=== PATIENT | male | born 1940 | race Caucasian/White ===

== ENCOUNTER 2016-06-19 13:51 | Emergency (ER) | payer MEDICARE, OTHER ==
[~2016-06-19] VITALS: Ht 167.6 cm; Wt 69.0 kg
[2016-06-19] MEDS ORDERED: ALLO300T PO (14:26)
[2016-06-19] MEDS ORDERED: DICY10CA3 PO (14:26)
[2016-06-19] MEDS ORDERED: CYAN100028 PO (14:26)
[2016-06-19] MEDS ORDERED: DILT240C77 PO (14:26)
[2016-06-19] MEDS ORDERED: TRAM50TA2 PO (14:26)
[2016-06-19] MEDS ORDERED: OXYB10TA6 PO (14:26)
[2016-06-19] MEDS ORDERED: APIX5TAB PO (14:26)
[2016-06-19] MEDS ORDERED: METH4TAB6 PO (14:26)
[2016-06-19] MEDS ORDERED: DIGO125T PO (14:26)
[2016-06-19] MEDS ORDERED: HYDR12.53 PO (14:26)
[2016-06-19] MEDS ORDERED: PRIM50TA PO (14:26)
[2016-06-19] MEDS ORDERED: TURM500C7 PO (14:26)
[2016-06-19] MEDS ORDERED: VALS320T2 PO (14:26)
[2016-06-19] MEDS ORDERED: ESOM40CA PO (14:26)
[2016-06-19] MEDS ORDERED: SODIUM CHLORIDE FLUSH 10ML SYR IVF ONE (14:30)
[2016-06-19] MEDS ORDERED: SODIUM CHLORIDE 0.9% 1,000ML IVBOLUS ONE (14:30)
[2016-06-19 15:04] LABS: BLOOD UREA NITROGEN 12 mg/dL (7-18)
[2016-06-19 15:09] LABS: ASPARTATE AMINO TRANSFERASE 51 U/L (15-37)
[2016-06-19] MEDS ORDERED: OXYcodone/APAP 5/325MG TABLET PO ONE (15:30)
[2016-06-19] MEDS ORDERED: OMNIPAQUE 350 MG/ML, 100ML BOTTLE ONE (15:31)
[2016-06-19] MEDS ORDERED: OXYcodone/APAP 5/325MG TABLET ONE (15:35)
[2016-06-19 16:19] VITALS: BP 122/77
== END 2016-06-19 16:21 | disposition home or self-care (01) ==
LOC: ED 16:15
DX: S22.32XA Fracture of one rib, left side, initial encounter for closed fracture (principal); S60.011A Contusion of right thumb without damage to nail, initial encounter; W18.39XA Other fall on same level, initial encounter; Y93.89 Activity, other specified; Y92.009 Unspecified place in unspecified non-institutional (private) residence as the place of occurrence of the external cause; Y99.9 Unspecified external cause status
CPT/HCPCS: 36415; 71260; 74177; 80053; 85025; 96360; 99285; J7030; Q9967

== ENCOUNTER → 2016-06-19 | Outpatient (CLI) | payer MEDICARE, OTHER ==
[~2016-06-19] MED LIST: ALLO300T PO; APIX5TAB PO; CYAN100028 PO; DICY10CA3 PO; DIGO125T PO; DILT240C77 PO; ESOM40CA PO; HYDR12.53 PO; METH4TAB6 PO; OXYB10TA6 PO; PRIM50TA PO; TRAM50TA2 PO; TURM500C7 PO; VALS320T2 PO
[2016-06-19 11:52] LABS: BLOOD UREA NITROGEN 10 mg/dL (7-18)
[2016-06-19 12:16] LABS: ASPARTATE AMINO TRANSFERASE 33 U/L (15-37)
[2016-06-20 11:06] LABS: CREATININE URINE 148.5 mg/dL (Not Estab.)
== END | disposition home or self-care (01) ==
LOC: CFH 09:36
PROVIDERS: ATTEND Internal Medicine
DX: G31.84 Mild cognitive impairment of uncertain or unknown etiology (principal); E11.9 Type 2 diabetes mellitus without complications; G25.0 Essential tremor; G47.00 Insomnia, unspecified; I10 Essential (primary) hypertension
CPT/HCPCS: 36415; 80053; 80061; 82043; 82570; 82607; 82746; 83036; 84153; 84443; 85025; G0103

== ENCOUNTER → 2016-09-21 | Outpatient (CLI) | payer MEDICARE, OTHER | END | disposition home or self-care (01) | LOC: CFH 09:33 | PROVIDERS: ATTEND Licensed Practical Nurse | DX: Z87.891 Personal history of nicotine dependence (principal); Z13.6 Encounter for screening for cardiovascular disorders | CPT/HCPCS: 93978 ==

== ENCOUNTER → 2017-12-13 | Outpatient (CLI) | payer MEDICARE, OTHER ==
[2017-12-13 15:32] LABS: BASOPHILS # (AUTO) 0.04 x10^3/uL (0-0.1); BASOPHILS % (AUTO) 1 % (0-1); EOSINOPHILS # (AUTO) 0.07 x10^3/uL (0-0.4); EOSINOPHILS % (AUTO) 1 % (1-7); LYMPHOCYTES # (AUTO) 1.35 x10^3/uL (1-3.4); LYMPHOCYTES % (AUTO) 26 % (22-44); MD NO; MEAN CORPUSCULAR HEMOGLOBIN 36.9 pg (27.5-34.5); MEAN CORPUSCULAR VOLUME 108.6 fL (81-97); MEAN PLATELET VOLUME 8.8 fL (7.4-10.4); MONOCYTES # (AUTO) 0.45 x10^3/uL (0.2-0.8); MONOCYTES % (AUTO) 9 % (2-9); NEUTROPHILS # (AUTO) 3.26 x10^3/uL (1.8-6.8); NEUTROPHILS % (AUTO) 63 % (42-75); PLATELET COUNT 152 x10^3/uL (130-400)
[2017-12-13 15:40] LABS: ALANINE AMINOTRANSFERASE 81 U/L (12-78); ALBUMIN 3.6 g/dL (3.4-5.0); ANION GAP 10 mmol/L (5-15); CALCIUM 8.5 mg/dL (8.5-10.1); CHLORIDE 100 mmol/L (98-107); CHOLESTEROL, TOTAL 137 mg/dL (140-239); CREATININE 0.83 mg/dL (0.7-1.3)
[2017-12-13 15:46] LABS: ALKALINE PHOSPHATASE 77 U/L (45-117); BILIRUBIN,TOTAL 1.2 mg/dL (0.2-1.0); CHOL/HDL RATIO 2.4; HDL CHOL % 42 % (26-37); HDL CHOLESTEROL (DIRECT) 58 mg/dL (40-60); LDL CHOLESTEROL,CALCULATED 44 mg/dL (54-169); LDL/HDL RATIO 0.8 (0.5-3.0); TOTAL PROTEIN 7.4 g/dL (6.4-8.2); TRIGLYCERIDES 173 mg/dL (50-200); VLDL CHOLESTEROL 35 mg/dL (0-25)
[2017-12-13 16:11] LABS: HEMOGLOBIN A1C 6.3 % (4.2-6.3)
== END | disposition home or self-care (01) ==
LOC: CFH 13:26
PROVIDERS: ATTEND Internal Medicine Rheumatology
DX: Z12.5 Encounter for screening for malignant neoplasm of prostate (principal); G25.0 Essential tremor; G31.84 Mild cognitive impairment of uncertain or unknown etiology; G47.00 Insomnia, unspecified; G47.30 Sleep apnea, unspecified; F10.20 Alcohol dependence, uncomplicated; E11.9 Type 2 diabetes mellitus without complications
CPT/HCPCS: 36415; 80053; 80061; 83036; 84550; 85025; G0103; 84153

== ENCOUNTER → 2018-03-21 | Outpatient (CLI) | payer MEDICARE, OTHER ==
[~2018-03-21] MED LIST changes: +HYDR12.517 PO; -HYDR12.53 PO
== END | disposition home or self-care (01) ==
LOC: RAD 13:36
PROVIDERS: ATTEND Internal Medicine
DX: R13.10 Dysphagia, unspecified (principal)
CPT/HCPCS: 74220

== ENCOUNTER → 2018-04-09 | Outpatient (CLI) | payer MEDICARE, OTHER | END | disposition home or self-care (01) | LOC: CFH 10:40 | PROVIDERS: ATTEND Internal Medicine Gastroenterology | DX: R74.8 Abnormal levels of other serum enzymes (principal); R53.81 Other malaise; R63.0 Anorexia; R68.81 Early satiety | CPT/HCPCS: 76700 ==

== ENCOUNTER → 2018-05-20 | Outpatient (CLI) | payer MEDICARE, OTHER ==
[2018-05-20 15:22] LABS: ALANINE AMINOTRANSFERASE 43 U/L (12-78); ALBUMIN 3.9 g/dL (3.4-5.0); ANION GAP 4 mmol/L (5-15); CALCIUM 8.9 mg/dL (8.5-10.1); CHLORIDE 105 mmol/L (98-107)
[2018-05-20 15:25] LABS: ALKALINE PHOSPHATASE 68 U/L (45-117); BILIRUBIN,TOTAL 1.2 mg/dL (0.2-1.0); CREATININE 0.93 mg/dL (0.7-1.3); TOTAL PROTEIN 7.3 g/dL (6.4-8.2)
== END | disposition home or self-care (01) ==
LOC: CFH 10:36
PROVIDERS: ATTEND Internal Medicine Gastroenterology
DX: R53.81 Other malaise (principal); R63.0 Anorexia; R74.8 Abnormal levels of other serum enzymes; R68.81 Early satiety
CPT/HCPCS: 36415; 80053

== ENCOUNTER 2018-07-24 12:07 | Outpatient (CLI) | payer MEDICARE, OTHER ==
[~2018-07-24 12:07] MED LIST changes: +REGADENOSON 0.4 MG/5 ML SYRINGE ONE
== END 2018-07-24 23:59 | disposition home or self-care (01) ==
LOC: CFH 12:07
PROVIDERS: ATTEND Internal Medicine Cardiovascular Disease
DX: Z01.818 Encounter for other preprocedural examination (principal); I48.91 Unspecified atrial fibrillation
CPT/HCPCS: 78452; 93017; A9502; J2785

== ENCOUNTER → 2018-08-22 | Outpatient (CLI) | payer MEDICARE, OTHER ==
[~2018-08-22] MED LIST changes: +ALBU18HF INH; +CETI10TA24 PO; +FLUO30CR2 TP; +FLUT15.88 NS; +GABA300C10 PO; +LOSA100T14 PO; +MIRA50TA PO; +PANT40TA5 PO; -REGADENOSON 0.4 MG/5 ML SYRINGE ONE; +SOLI10TA2 PO
== END | disposition home or self-care (01) ==
LOC: CFH 13:28
PROVIDERS: ATTEND Internal Medicine Rheumatology
DX: M1A.09X0 Idiopathic chronic gout, multiple sites, without tophus (tophi) (principal); I48.2 Chronic atrial fibrillation; Z79.01 Long term (current) use of anticoagulants
CPT/HCPCS: 36415; 84550

== ENCOUNTER 2018-08-27 10:04 | Outpatient (CLI) | payer MEDICARE, OTHER ==
[~2018-08-27 10:04] MED LIST changes: -ALBU18HF INH; -CETI10TA24 PO; -FLUO30CR2 TP; -FLUT15.88 NS; -GABA300C10 PO; -LOSA100T14 PO; -MIRA50TA PO; -PANT40TA5 PO; -SOLI10TA2 PO
[2018-08-27] MEDS ORDERED: CETI10TA24 PO (11:04)
[2018-08-27] MEDS ORDERED: SOLI10TA2 PO (11:04)
[2018-08-27] MEDS ORDERED: FLUT15.845 NS (11:04)
[2018-08-27] MEDS ORDERED: ALBU18HF INH (11:04)
[2018-08-27] MEDS ORDERED: GABA300C10 PO (11:04)
[2018-08-27] MEDS ORDERED: PANT40TA5 PO (11:04)
[2018-08-27] MEDS ORDERED: MIRA50TA PO (11:04)
[2018-08-27] MEDS ORDERED: FLUO30CR2 TP (11:04)
[2018-08-27] MEDS ORDERED: LOSA100T14 PO (11:04)
[2018-08-27 11:39] LABS: INTERNATIONAL NORMALIZED RATIO 1.12 (0.93-1.1); PROTHROMBIN TIME 11.7 Seconds (9.6-11.5)
[2018-08-27 11:52] LABS: BASOPHILS # (AUTO) 0.05 x10^3/uL (0-0.1); BASOPHILS % (AUTO) 1 % (0-1); EOSINOPHILS # (AUTO) 0.11 x10^3/uL (0-0.4); EOSINOPHILS % (AUTO) 3 % (1-7); LYMPHOCYTES # (AUTO) 1.32 x10^3/uL (1-3.4); LYMPHOCYTES % (AUTO) 32 % (22-44); MD NO; MEAN CORPUSCULAR HEMOGLOBIN 35.3 pg (27.5-34.5); MEAN CORPUSCULAR HGB CONC 33.7 g/dL (33.2-36.2); MEAN CORPUSCULAR VOLUME 104.6 fL (81-97); MEAN PLATELET VOLUME 8.2 fL (7.4-10.4); MONOCYTES % (AUTO) 12 % (2-9); NEUTROPHILS # (AUTO) 2.19 x10^3/uL (1.8-6.8); NEUTROPHILS % (AUTO) 53 % (42-75); PLATELET COUNT 127 x10^3/uL (130-400); RED BLOOD COUNT 4.63 x10^6/uL (4.38-5.82); RED CELL DISTRIBUTION WIDTH 13.6 % (9.4-14.8)
[2018-08-27 12:24] LABS: CHLORIDE 105 mmol/L (98-107)
[2018-08-27 12:30] LABS: ALANINE AMINOTRANSFERASE 55 U/L (12-78); ALBUMIN 4.1 g/dL (3.4-5.0); ALKALINE PHOSPHATASE 80 U/L (45-117); ANION GAP 3 mmol/L (5-15); BILIRUBIN,TOTAL 1.1 mg/dL (0.2-1.0); CALCIUM 9.1 mg/dL (8.5-10.1); CREATININE 0.94 mg/dL (0.7-1.3); TOTAL PROTEIN 7.9 g/dL (6.4-8.2)
== END 2018-08-27 23:59 | disposition home or self-care (01) ==
LOC: STAR 10:04
PROVIDERS: ATTEND Orthopaedic Surgery
DX: I48.91 Unspecified atrial fibrillation (principal); I49.3 Ventricular premature depolarization; M16.11 Unilateral primary osteoarthritis, right hip; Z79.899 Other long term (current) drug therapy
CPT/HCPCS: 36415; 80053; 83036; 85025; 85610; 85730; 87081; 87806; 93005; G0475

== ENCOUNTER 2018-09-01 07:27 | Inpatient (IN) | payer MEDICARE, OTHER ==
[~2018-09-01] VITALS: Ht 167.6 cm; Wt 74.3 kg
[~2018-09-01 07:27] MED LIST changes: +ALBU18HF INH; +CETI10TA24 PO; +EPINEPHRINE 1 MG/ML, 1ML ONE; +FLUO30CR2 TP; +FLUT15.845 NS; +GABA300C10 PO; +KETOROLAC 60 MG/2 ML ONE; +LOSA100T14 PO; +MIRA50TA PO; +PANT40TA5 PO; +ROPIvacaine/PF 0.2%, 20 ML ONE; +SODIUM CHLORIDE 0.9% 50 ML ONE; +SOLI10TA2 PO; +TRANEXAMIC ACID 100 MG/ML, 10ML ONE
[2018-09-01] MEDS ORDERED: LACTATED RINGERS 1,000 ML IV SCH (07:49)
[2018-09-01] MEDS ORDERED: ACETAMINOPHEN 500 MG TABLET PO ONE (08:00)
[2018-09-01] MEDS ORDERED: GABAPENTIN 300 MG CAPSULE PO ONE (08:00)
[2018-09-01 08:01] VITALS: BP 149/99
[2018-09-01] MEDS ORDERED: ONDANSETRON 4 MG TABLET PO PRN (09:00)
[2018-09-01] MEDS ORDERED: OXYcodone IR 5MG TABLET PO PRN (09:00)
[2018-09-01] MEDS ORDERED: POLYETHYLENE GLYCOL 17 GM PACKET PO PRN (09:00)
[2018-09-01] MEDS ORDERED: DIPHENHYDRAMINE 25 MG CAPSULE PO PRN (09:00)
[2018-09-01] MEDS ORDERED: ONDANSETRON 2MG/ML, 2ML IV PRN ×2 (09:00→11:30)
[2018-09-01] MEDS ORDERED: ACETAMINOPHEN 650 MG/20.3 ML UDC PO PRN (09:00)
[2018-09-01] MEDS: DOCUSATE 100 MG CAPSULE PO SCH ×2 (09:00→20:26)
[2018-09-01] MEDS ORDERED: ALUMINUM/MAG/SIMETHICONE 30 ML UDC PO PRN (09:00)
[2018-09-01] MEDS ORDERED: HYDROmorphone 2 MG/ML, 1ML IVPush PRN ×2 (09:00→11:30)
[2018-09-01] MEDS ORDERED: PSYLLIUM PACKET PO PRN (09:00)
[2018-09-01] MEDS ORDERED: SENNA/DOCUSATE TABLET PO PRN (09:00)
[2018-09-01] MEDS ORDERED: DIPHENHYDRAMINE 50 MG/ML, 1ML IVPush PRN (09:00)
[2018-09-01] MEDS ORDERED: TRANEXAMIC ACID 1,000 MG in SODIUM CHLORIDE 0.9% 100 ML IVPB ONE (09:00)
[2018-09-01] MEDS ORDERED: MAGNESIUM HYDROXIDE 8%, 30ML UDC PO PRN (09:00)
[2018-09-01] MEDS ORDERED: FENTANYL PF 250 MCG/5ML ONE (09:56)
[2018-09-01] MEDS ORDERED: GLYCOPYRROLATE 0.2MG/1ML, 5ML ONE (10:22)
[2018-09-01] MEDS ORDERED: PHENYLEPHRINE 10 MG/ML ONE (10:22)
[2018-09-01] MEDS ORDERED: ROCURONIUM 10MG/ML,5ML ONE (10:22)
[2018-09-01] MEDS ORDERED: ALBUTEROL/IPRATROPIUM 2.5MG/0.5MG, 3 ML NPPB PRN (11:30)
[2018-09-01] MEDS ORDERED: hydrALAzine 20 MG/ML, 1ML IV PRN (11:30)
[2018-09-01] MEDS ORDERED: MIDAZOLAM 1 MG/ML, 2ML IV PRN (11:30)
[2018-09-01] MEDS ORDERED: OXYcodone 5 MG/5 ML ORAL.SOL UDC PO PRN (11:30)
[2018-09-01] MEDS ORDERED: MEPERIDINE/PF 25MG/0.5ML IVPush PRN (11:30)
[2018-09-01] MEDS ORDERED: METOPROLOL 1 MG/ML, 5ML IV PRN (11:30)
[2018-09-01] MEDS ORDERED: PROMETHAZINE 25 MG/ML, 1ML IV PRN (11:30)
[2018-09-01] MEDS ORDERED: DEXAMETHASONE 4 MG/ML, 1ML ONE (11:49)
[2018-09-01] MEDS ORDERED: PROPOFOL 10 MG/ML, 20ML ONE (11:49)
[2018-09-01] MEDS ORDERED: SUCCINYLCHOLINE 20 MG/ML, 10ML ONE (11:49)
[2018-09-01] MEDS ORDERED: CEFAZOLIN 1,000 MG ONE (11:49)
[2018-09-01] MEDS ORDERED: ONDANSETRON 2MG/ML, 2ML ONE (11:49)
[2018-09-01] MEDS ORDERED: KETOROLAC 30 MG/1 ML ONE (12:27)
[2018-09-01] MEDS: KETOROLAC 30 MG/1 ML IV SCH ×2 (12:29→17:00)
[2018-09-01] MEDS ORDERED: FENTANYL PF 100 MCG/2ML ONE (12:34)
[2018-09-01] MEDS ORDERED: OXYcodone 5 MG/5 ML ORAL.SOL UDC ONE (12:35)
[2018-09-01] MEDS: FENTANYL PF 100 MCG/2ML IV PRN ×2 (12:41→12:48)
[2018-09-01] MEDS ORDERED: FLUTICASONE NASAL SPRAY 16GM NAS PRN (14:00)
[2018-09-01] MEDS ORDERED: ALBUTEROL SULFATE 2.5 MG/3 ML NPPB PRN (14:00)
[2018-09-01] MEDS: POTASSIUM CHLORIDE 20 MEQ in D5%-0.45% NACL 1,000 ML IV SCH (17:48)
[2018-09-01] MEDS: CEFAZOLIN PMX 1GM/50ML 50 ML IVPB SCH (17:49)
[2018-09-01 19:52] VITALS: BP 122/68
[2018-09-01] MEDS ORDERED: GABAPENTIN 300 MG CAPSULE PO SCH (21:00)
[2018-09-02] MEDS: KETOROLAC 30 MG/1 ML IV SCH (00:59)
[2018-09-02 02:00] VITALS: BP 114/69
[2018-09-02] MEDS: CEFAZOLIN PMX 1GM/50ML 50 ML IVPB SCH (02:14)
[2018-09-02] MEDS: POTASSIUM CHLORIDE 20 MEQ in D5%-0.45% NACL 1,000 ML IV SCH (04:10)
[2018-09-02] MEDS ORDERED: DEXAMETHASONE 4 MG/ML, 1ML IVPush ONE (06:00)
[2018-09-02] MEDS ORDERED: PANTOPROZOLE 40MG TABLET PO SCH (06:00)
[2018-09-02] MEDS ORDERED: APIXABAN 5 MG TABLET PO SCH (06:00)
[2018-09-02 07:06] VITALS: BP 143/46
[2018-09-02] MEDS: DOCUSATE 100 MG CAPSULE PO SCH (08:14)
[2018-09-02] MEDS ORDERED: CETIRIZINE 10 MG TABLET PO SCH (09:00)
[2018-09-02] MEDS ORDERED: DIGOXIN 0.125 MG TABLET PO SCH (09:00)
[2018-09-02] MEDS ORDERED: PRIMIDONE 50 MG TABLET PO SCH (09:00)
[2018-09-02] MEDS ORDERED: LOSARTAN 50MG TABLET PO SCH (09:00)
[2018-09-02] MEDS ORDERED: TEMPLATE NON-FORMULARY MED. (VESICARE 10 MG) PO SCH (09:00)
[2018-09-02] MEDS ORDERED: MYRBETRIQ 50 MG PO SCH (09:00)
== END 2018-09-02 10:50 | disposition home or self-care (01) | DRG 470 ==
LOC: ORIP 07:27 → 4NOR 13:32 → DCLOUNGE 09-02 10:34
PROVIDERS: ADMIT Orthopaedic Surgery; ATTEND Orthopaedic Surgery
PROC: 0SR906Z Replacement of Right Hip Joint with Oxidized Zirconium on Polyethylene Synthetic Substitute, Open Approach (ICD-10-PCS; principal; 2018-09-01 10:45)
DX: M16.11 Unilateral primary osteoarthritis, right hip (principal); R71.0 Precipitous drop in hematocrit; Z91.030 Bee allergy status; I48.91 Unspecified atrial fibrillation; I10 Essential (primary) hypertension; J45.909 Unspecified asthma, uncomplicated; K21.9 Gastro-esophageal reflux disease without esophagitis; M06.9 Rheumatoid arthritis, unspecified; G47.33 Obstructive sleep apnea (adult) (pediatric)
CPT/HCPCS: 36415; 72170; 85014; 85018; 86850; 86900; C1713; G0378; J0171; J0690; J1100; J1885; J2405; J2704; J2795; J3010; J3480; C1776; J0330; J2370; J7120

== ENCOUNTER 2018-09-09 15:18 | Emergency (ER) | payer MEDICARE, OTHER ==
[~2018-09-09] VITALS: Ht 167.6 cm; Wt 64.0 kg
[~2018-09-09 15:18] MED LIST changes: -EPINEPHRINE 1 MG/ML, 1ML ONE; -KETOROLAC 60 MG/2 ML ONE; -ROPIvacaine/PF 0.2%, 20 ML ONE; -SODIUM CHLORIDE 0.9% 50 ML ONE; -TRANEXAMIC ACID 100 MG/ML, 10ML ONE
[2018-09-09 15:25] VITALS: BP 121/71
[2018-09-09 15:53] LABS: BASOPHILS # (AUTO) 0.04 x10^3/uL (0-0.1); BASOPHILS % (AUTO) 0 % (0-1); EOSINOPHILS # (AUTO) 0.05 x10^3/uL (0-0.4); EOSINOPHILS % (AUTO) 0 % (1-7); LYMPHOCYTES # (AUTO) 1.69 x10^3/uL (1-3.4); LYMPHOCYTES % (AUTO) 16 % (22-44); MD NO; MEAN CORPUSCULAR HEMOGLOBIN 34.8 pg (27.5-34.5); MEAN CORPUSCULAR HGB CONC 32.4 g/dL (33.2-36.2); MEAN CORPUSCULAR VOLUME 107.2 fL (81-97); MEAN PLATELET VOLUME 7.4 fL (7.4-10.4); MONOCYTES # (AUTO) 1.03 x10^3/uL (0.2-0.8); MONOCYTES % (AUTO) 10 % (2-9); NEUTROPHILS # (AUTO) 7.59 x10^3/uL (1.8-6.8); NEUTROPHILS % (AUTO) 73 % (42-75); PLATELET COUNT 299 x10^3/uL (130-400); RED BLOOD COUNT 3.54 x10^6/uL (4.38-5.82); RED CELL DISTRIBUTION WIDTH 13.4 % (9.4-14.8)
[2018-09-09 16:03] LABS: ANION GAP 7 mmol/L (5-15); CALCIUM 8.8 mg/dL (8.5-10.1); CHLORIDE 104 mmol/L (98-107)
[2018-09-09 16:08] LABS: ALANINE AMINOTRANSFERASE 42 U/L (12-78); ALKALINE PHOSPHATASE 71 U/L (45-117); BILIRUBIN,TOTAL 1.2 mg/dL (0.2-1.0); CREATININE 0.75 mg/dL (0.7-1.3); TOTAL PROTEIN 7.3 g/dL (6.4-8.2)
--- NOTE | 2018-09-09 17:45 | NUR ---
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
== END 2018-09-09 19:43 | disposition home or self-care (01) ==
LOC: ED 19:19
DX: R06.6 Hiccough (principal); R13.12 Dysphagia, oropharyngeal phase
CPT/HCPCS: 36415; 80053; 83690; 85025; 99283

== ENCOUNTER → 2019-02-13 | Outpatient (CLI) | payer MEDICARE, OTHER | END | disposition home or self-care (01) | LOC: CFH 12:37 | PROVIDERS: ATTEND Internal Medicine | DX: M25.511 Pain in right shoulder (principal) ==

== ENCOUNTER → 2019-06-05 | Outpatient (CLI) | payer MEDICARE, OTHER ==
[~2019-06-05] MED LIST changes: -CETI10TA24 PO; +CETI10TA26 PO; -DIGO125T PO; +DIGO125T85 PO
== END | disposition home or self-care (01) ==
LOC: CFH 10:27
PROVIDERS: ATTEND Internal Medicine
DX: M19.041 Primary osteoarthritis, right hand (principal)

== ENCOUNTER → 2020-02-23 | Outpatient (CLI) | payer MEDICARE, OTHER ==
[~2020-02-23] MED LIST changes: -CETI10TA26 PO; +CETI10TA76 PO; -PANT40TA5 PO; +PANT40TA6 PO
== END | disposition home or self-care (01) ==
LOC: RAD 09:52
PROVIDERS: ATTEND Physician Assistant
DX: R13.12 Dysphagia, oropharyngeal phase (principal); Z86.010 Personal history of colon polyps
CPT/HCPCS: 74230

== ENCOUNTER → 2020-09-20 | Outpatient (CLI) | payer MEDICARE, OTHER ==
[2020-09-20 14:53] LABS: BASOPHILS % (AUTO) 1 % (0-1); EOSINOPHILS % (AUTO) 1 % (1-7); LYMPHOCYTES % (AUTO) 17 % (22-44); MEAN CORPUSCULAR HEMOGLOBIN 35.2 pg (27.5-34.5); MEAN CORPUSCULAR HGB CONC 33.8 g/dL (33.2-36.2); MEAN PLATELET VOLUME 7.9 fL (7.4-10.4); MONOCYTES % (AUTO) 10 % (2-9); NEUTROPHILS % (AUTO) 72 % (42-75); PLATELET COUNT 154 x10^3/uL (130-400); RED BLOOD COUNT 4.56 x10^6/uL (4.38-5.82); RED CELL DISTRIBUTION WIDTH 13.7 % (9.4-14.8)
[2020-09-20 15:04] LABS: ANION GAP 6 mmol/L (5-15); CALCIUM 9.1 mg/dL (8.5-10.1); CHLORIDE 106 mmol/L (98-107)
== END | disposition home or self-care (01) ==
LOC: STAR 13:52
PROVIDERS: ATTEND Ophthalmology
DX: Z01.818 Encounter for other preprocedural examination (principal); Z01.89 Encounter for other specified special examinations; Z01.812 Encounter for preprocedural laboratory examination; R79.1 Abnormal coagulation profile; H02.135 Senile ectropion of left lower eyelid; H02.132 Senile ectropion of right lower eyelid; H04.562 Stenosis of left lacrimal punctum; I48.91 Unspecified atrial fibrillation; I49.3 Ventricular premature depolarization; R94.31 Abnormal electrocardiogram [ECG] [EKG]; Z79.01 Long term (current) use of anticoagulants
CPT/HCPCS: 36415; 80048; 85025; 93005